=== PATIENT | female | born 1970 | race Caucasian/White ===

== ENCOUNTER 2016-11-21 11:46 | Inpatient (IN) | payer OTHER ==
[2016-11-21] VITALS (9 sets, daily range): BP systolic 144–167; BP diastolic 81–96; PULSE 52–96; TEMP 97–98.1
[~2016-11-21] VITALS: Ht 172.7 cm; Wt 54.8 kg
[2016-11-21] MEDS ORDERED: OXYCONTIN 20MG20 MG PO (15:18)
[2016-11-21] MEDS ORDERED: PERCOCET 325 MG1 TA2 PO (15:18)
[2016-11-21] MEDS ORDERED: SOMA250 MG (15:19)
[2016-11-21] MEDS ORDERED: KEPPRA750 MG PO (15:20)
[2016-11-21] MEDS ORDERED: VITAMIN C500 MG PO (15:21)
[2016-11-21] MEDS ORDERED: CALCIUM 600MG+D1 TAB PO (15:21)
[2016-11-22] VITALS (7 sets, daily range): BP systolic 135–149; BP diastolic 64–87; PULSE 90–117; TEMP 98.1–100.3
[2016-11-22 07:54] LABS: HEMATOCRIT 45.7 % (37.0-47.0); MEAN CELL VOLUME 92 fl (80.0-100.0); MEAN CORPUSCULAR HEMOGLOBIN 32 pg (27.0-31.0); MEAN CORPUSCULAR HGB CONC 35 g/dl (33.0-37.0); PLATELET COUNT 207 K/mm3 (130-400); RED BLOOD COUNT 4.95 M/mm3 (4.10-5.30); REDCELL DISTRIBUTION WIDTH-CV 11.6 % (11.5-14.5)
[2016-11-22 08:15] LABS: CALCIUM 7.5 mg/dL (8.4-10.2); CREATININE, serum 0.73 mg/dL (0.52-1.25)
[2016-11-22 08:27] LABS: POTASSIUM 2.6 mmol/L (3.4-5.0)
[2016-11-22 14:47] LABS: PH 6 (5-8); URINE APPEARANCE Hazy; URINE BACTERIA None Seen /hpf; URINE BILIRUBIN Negative (NEGATIVE); URINE BLOOD 1+ (NEGATIVE); URINE COLOR Amber; URINE GLUCOSE Negative (NEGATIVE); URINE KETONE 2+ (NEGATIVE); URINE UROBILINOGEN Negative (NEGATIVE)
[2016-11-23 01:38] VITALS: BP 153/79; PULSE 102; TEMP 98.5
[2016-11-23 05:12] VITALS: BP 144/94; PULSE 107; TEMP 98.5
[2016-11-23 06:34] LABS: HEMATOCRIT 39.2 % (37.0-47.0); MEAN CELL VOLUME 92 fl (80.0-100.0); MEAN CORPUSCULAR HEMOGLOBIN 32 pg (27.0-31.0); MEAN CORPUSCULAR HGB CONC 35 g/dl (33.0-37.0); MEAN PLATELET VOLUME 10.8 fl (7.4-10.4); PLATELET COUNT 175 K/mm3 (130-400); RED BLOOD COUNT 4.25 M/mm3 (4.10-5.30); REDCELL DISTRIBUTION WIDTH-CV 11.8 % (11.5-14.5); WHITE BLOOD COUNT 4.3 K/mm3 (4.8-10.8)
[2016-11-23 06:40] LABS: HEMOGLOBIN 13.7 g/dl (12.5-16.0)
[2016-11-23 06:54] LABS: CALCIUM 7.7 mg/dL (8.4-10.2); CREATININE, serum 0.59 mg/dL (0.52-1.25); POTASSIUM 3.7 mmol/L (3.4-5.0)
[2016-11-23 09:25] VITALS: BP 120/79; PULSE 87; TEMP 98
== END 2016-11-23 12:45 | disposition home or self-care (01) | DRG 337 ==
LOC: SURG 11:46
PROVIDERS: Surgery
PROC: 0WQF4ZZ Repair Abdominal Wall, Percutaneous Endoscopic Approach (ICD-10-PCS; 2016-11-21)
PROC: 0DN84ZZ Release Small Intestine, Percutaneous Endoscopic Approach (ICD-10-PCS; principal; 2016-11-21 13:15)
DX: K56.5 Intestinal adhesions [bands] with obstruction (postinfection) (principal); F17.210 Nicotine dependence, cigarettes, uncomplicated
CPT/HCPCS: A4315; A9284; J0694; J1100; J1885; J2270; J2405; J2543; J2704; J7030; J7050; J7120